=== PATIENT | female | born 1995 | race African-American/Black ===

== ENCOUNTER 2016-09-18 09:16 | Emergency (ER) | payer SELFPAY ==
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
[2016-09-18] MEDS ORDERED: Albuterol/Ipratropium 3.0-0.5 MG/3 ML Neb Soln ONE (09:58)
--- NOTE | 2016-09-18 10:18 | CR ---
EXAMINATION: Right thumb HISTORY: Pain COMPARISON: None TECHNIQUE: 3 views FINDINGS/IMPRESSION: There is no acute osseous abnormality, dislocation, or fracture identified. Bon e mineralization and joint spaces appear preserved.
[2016-09-18 10:45] VITALS: BP 110/68
== END 2016-09-18 10:44 | disposition home or self-care (01) ==
LOC: MW.ED 09:16
DX: S69.91XA Unspecified injury of right wrist, hand and finger(s), initial encounter (principal); V89.2XXA Person injured in unspecified motor-vehicle accident, traffic, initial encounter; Y92.410 Unspecified street and highway as the place of occurrence of the external cause
CPT/HCPCS: 73140-26-F5; 73140-F5; 99282; 99283